=== PATIENT | female | born 2000 | race Two or more races ===

== ENCOUNTER → 2019-10-18 | Outpatient (REF) | payer OTHER ==
[~2019-10-18] MED LIST: KETO10TAB PO
== END ==
LOC: M SFHCLERA 11:51
PROVIDERS: ATTEND Nurse Practitioner Family
DX: J02.9 Acute pharyngitis, unspecified (principal)

== ENCOUNTER 2019-10-19 19:36 | Emergency (ER) | payer OTHER ==
[~2019-10-19] VITALS: Ht 157.5 cm; Wt 54.5 kg
[2019-10-19 19:36] VITALS: BP 123/76
[2019-10-19] MEDS ORDERED: KETOROLAC 60 MG/2 ML VIAL (J1885) IM ONE (20:15)
[2019-10-19] MEDS ORDERED: KETO10TAB PO (20:35)
== END 2019-10-19 20:43 | disposition home or self-care (01) ==
LOC: M ED 19:36
DX: J03.90 Acute tonsillitis, unspecified (principal)
CPT/HCPCS: 96372; 99282; J1885

== ENCOUNTER 2019-10-22 13:40 | Emergency (ER) | payer OTHER ==
[~2019-10-22] VITALS: Ht 157.5 cm; Wt 59.7 kg
[2019-10-22 13:41] VITALS: BP 100/64
[2019-10-22] MEDS ORDERED: PRED20TA PO ×2 (14:06→14:21)
[2019-10-22] MEDS ORDERED: AUGM875T28 PO ×2 (14:06→14:21)
== END 2019-10-22 14:16 | disposition home or self-care (01) ==
LOC: M ED 13:40
DX: J36 Peritonsillar abscess (principal); H92.03 Otalgia, bilateral

== ENCOUNTER 2019-11-03 18:49 | Emergency (ER) | payer OTHER ==
[~2019-11-03] VITALS: Ht 157.5 cm; Wt 58.7 kg
[~2019-11-03 18:49] MED LIST changes: +AUGM875T28 PO; +PRED20TA PO
[2019-11-03] MEDS ORDERED: ISOVUE-370 76% 100ML VIAL As Ordered ONE (19:16)
[2019-11-03 19:37] LABS: BASO % 0.2 % (0.0-1.0); EOS % 0.2 % (0.0-3.0); HEMATOCRIT 43.4 % (36.0-47.0); HEMOGLOBIN 14.6 g/dl (12.0-15.5); LYMPH # 2.3 10^3/uL (1.5-5.0); LYMPH % 25.8 % (24.0-44.0); MEAN CORPUSCULAR HEMOGLOBIN 32.6 pg (27.0-33.0); MEAN CORPUSCULAR HGB CONC 33.6 g/dl (32.0-36.5); MEAN CORPUSCULAR VOLUME 96.9 fl (80.0-96.0); MONO # 0.7 10^3/uL (0.0-0.8); NEUTROPHILS # 5.9 10^3/uL (1.5-8.5); NEUTROPHILS % 65.6 % (36.0-66.0); PLATELET COUNT, AUTOMATED 246 10^3/uL (150-450); RED BLOOD COUNT 4.48 10^6/uL (4.00-5.40)
[2019-11-03 19:55] LABS: ERYTHROCYTE SEDIMENTATION RATE 5 mm/hr (0-20)
--- NOTE | 2019-11-03 19:59 | REPVR ---
PROCEDURE INFORMATION: Exam: CT Neck With Contrast Exam date and time: 11/03/2019 7:47 PM Age: 19 years old Clinical indication: Mass, lump, or swelling in neck; Additional info: Persistent swelling left tonsil p tx/ ? abscess TECHNIQUE: Imaging protocol: Computed tomography images of the neck with intravenous contrast. Radiation optimization: All CT scans at this facility use at least one of these dose optimization techniques: automated exposure control; mA and/or kV adjustment per patient size (includes targeted exams where dose is matched to clinical indication); or iterative reconstruction. Contrast material: ISOVUE 370; Contrast volume: 75 ml; Contrast route: IV; COMPARISON: No relevant prior studies available. FINDINGS: Sinuses: No fluid collections. Nasopharynx: Unremarkable. Oropharynx: Mild left palatine tonsillar enlargement with heterogeneous enhancement. Hypopharynx: Unremarkable. Larynx: Unremarkable. Normal epiglottis. Retropharyngeal space: Unremarkable. Submandibular/Parotid glands: Normal. Glands are normal in size. Thyroid: Normal. No enlarged or calcified nodules. Lymph nodes: Mild left cervical adenopathy, likely reactive. Trachea: Visualized trachea is unremarkable. Lungs: Unremarkable as visualized. Bones/joints: Unremarkable. No acute fracture. Soft tissues: Unremarkable. No significant soft tissue swelling. IMPRESSION: 1. Mild left palatine tonsillar enlargement with heterogeneous enhancement. No fluid collections/abscess. 2. Mild left cervical adenopathy, likely reactive. Electronically signed by: Edgar Suarez On 11/03/2019 19:59:31 PM
[2019-11-03] MEDS ORDERED: CLEO300C2 PO (20:12)
[2019-11-03 20:17] VITALS: BP 122/77
== END 2019-11-03 20:22 | disposition home or self-care (01) ==
LOC: M ED 18:49
DX: J03.90 Acute tonsillitis, unspecified (principal); R59.0 Localized enlarged lymph nodes; H92.02 Otalgia, left ear; R42 Dizziness and giddiness
CPT/HCPCS: 70491; 80047; 83605; 84702; 85025; 85652; 86140; 87040; 99283; Q9967

== ENCOUNTER 2020-01-05 10:44 | Emergency (ER) | payer OTHER ==
[~2020-01-05] VITALS: Ht 160 cm; Wt 59.1 kg
[~2020-01-05 10:44] MED LIST changes: +CLEO300C2 PO
[2020-01-05] MEDS ORDERED: PREN29TA4 PO (10:52)
[2020-01-05 11:23] LABS: HEMATOCRIT 36.1 % (36.0-47.0); HEMOGLOBIN 12.2 g/dl (12.0-15.5); MEAN CORPUSCULAR HEMOGLOBIN 32.1 pg (27.0-33.0); MEAN CORPUSCULAR HGB CONC 33.8 g/dl (32.0-36.5); PLATELET COUNT, AUTOMATED 211 10^3/uL (150-450); WHITE BLOOD COUNT 5.3 10^3/uL (4.0-10.0)
--- NOTE | 2020-01-05 12:14 | REP ---
Clinical: Vaginal bleeding for dating and viability. Technique: Transabdominal first trimester obstetrical ultrasound with color Doppler evaluation. Findings: Early live intrauterine noted. Gestational sac with yolk sac and pole identified. CRL of 36 mm corresponds to 10 weeks 3 days gestational age with estimated date of delivery 07/30/2020. heart rate equals 167 bpm. No gross abnormalities are identified. Maternal ovaries are normal in appearance and vascularity. Impression: Single live early intrauterine at 10 weeks 3 days gestational age. Complete anatomical assessment should be performed at 19-20 weeks. Electronically Signed by Eber Colón MD 01/05/2020 12:06 P
[2020-01-05 12:25] LABS: APPEARANCE, URINE CLEAR (CLEAR); BACTERIA, URINE AUTO NEGATIVE (NEGATIVE); BILIRUBIN, URINE AUTO NEGATIVE (NEGATIVE); BLOOD, URINE BLOOD 2+ (NEGATIVE); COLOR, URINE STRAW (YELLOW); GLUCOSE, URINE (UA) AUTO NEGATIVE (NEGATIVE); KETONE, URINE AUTO NEGATIVE (NEGATIVE); LEUKOCYTE ESTERASE, URINE AUTO NEGATIVE (NEGATIVE); MUCUS, URINE SMALL (NEGATIVE); NITRITE, URINE AUTO NEGATIVE (NEGATIVE); PROTEIN, URINE AUTO NEGATIVE (NEGATIVE); RBC, URINE AUTO 9 /HPF (0-3); SPECIFIC GRAVITY URINE AUTO 1.009 (1.002-1.035); SQUAMOUS EPITHELIAL CELL UR AU 1 /HPF (0-6); UROBILINOGEN, URINE AUTO 0.2 mg/dL (0.0-2.0); WBC, URINE AUTO 0 /HPF (0-3)
[2020-01-05 12:46] VITALS: BP 124/76
[2020-01-05 13:47] LABS: CHLAMYDIA DNA AMPLIFICATION NEGATIVE (NEGATIVE); GC DNA AMPLIFICATION NEGATIVE (NEGATIVE)
== END 2020-01-05 12:48 | disposition home or self-care (01) ==
LOC: M ED 10:44
DX: O20.0 Threatened abortion (principal); Z79.899 Other long term (current) drug therapy

== ENCOUNTER 2020-01-23 10:47 | Emergency (ER) | payer OTHER ==
[~2020-01-23] VITALS: Ht 160 cm; Wt 59.3 kg
[~2020-01-23 10:47] MED LIST changes: +PREN29TA4 PO
[2020-01-23 11:12] LABS: BASO % 0.2 % (0.0-1.0); EOS % 0.4 % (0.0-3.0); HEMATOCRIT 36.5 % (36.0-47.0); HEMOGLOBIN 12.5 g/dl (12.0-15.5); LYMPH # 1.6 10^3/uL (1.5-5.0); MEAN CORPUSCULAR HEMOGLOBIN 32.5 pg (27.0-33.0); MEAN CORPUSCULAR HGB CONC 34.2 g/dl (32.0-36.5); MEAN CORPUSCULAR VOLUME 94.8 fl (80.0-96.0); MONO # 0.4 10^3/uL (0.0-0.8); MONO % 8.7 % (0.0-5.0); NEUTROPHILS # 2.8 10^3/uL (1.5-8.5); NEUTROPHILS % 57.5 % (36.0-66.0); PLATELET COUNT, AUTOMATED 223 10^3/uL (150-450); RED BLOOD COUNT 3.85 10^6/uL (4.00-5.40); WHITE BLOOD COUNT 4.8 10^3/uL (4.0-10.0)
[2020-01-23 11:45] LABS: BLOOD UREA NITROGEN 7 MG/DL (7-18); CALCIUM LEVEL 8.9 MG/DL (8.5-10.1); CARBON DIOXIDE LEVEL 25 MEQ/L (21-32); CHLORIDE LEVEL 105 MEQ/L (98-107); CREATININE FOR GFR 0.65 MG/DL (0.55-1.30); GLOMERULAR FILTRATION RATE > 60.0 (>60); GLUCOSE, FASTING 96 MG/DL (70-100); POTASSIUM SERUM 3.5 MEQ/L (3.5-5.1); SODIUM LEVEL 138 MEQ/L (136-145)
[2020-01-23 14:37] VITALS: BP 108/66
--- NOTE | 2020-01-23 16:08 | REP ---
REASON: Pelvic cramping. Transvesical and transvaginal imaging was obtained. Within the uterus, there is an anechoic structure with increased echoes surrounding it consistent with a decidual reaction. Within the gestational sac, there is echogenic material consistent with a pole, the mean crown-rump length measurement of which is consistent with a 45-ojtm-0-day gestational age. Based on that, the estimate date of delivery is 07/29/2020. Doppler interrogation of the heart shows the heart rate of 146 beats per minute. The developing placenta is in a fundal location. Seen adjacent to the developing chorion, there is a small area of decreased somewhat mixed echoes which measures 3 x 6 x 1 cm. IMPRESSION: Single living intrauterine gestation as described above. There is evidence of a subchorionic hemorrhage as described above. Followup is recommended. Electronically Signed by Cornelio Bonilla DO 01/23/2020 04:46 P
== END 2020-01-23 14:42 | disposition home or self-care (01) ==
LOC: M ED 10:47
DX: O20.9 Hemorrhage in early pregnancy, unspecified (principal); Z3A.13 13 weeks gestation of pregnancy

== ENCOUNTER 2020-04-29 11:01 | Outpatient (CLI) | payer OTHER ==
[~2020-04-29] VITALS: Ht 157.5 cm; Wt 70.6 kg
[2020-04-29 11:16] VITALS: BP 114/69
[2020-04-29 12:33] VITALS: BP 129/72
[2020-04-29 13:27] LABS: HEMATOCRIT 31.5 % (36.0-47.0); MEAN CORPUSCULAR HEMOGLOBIN 28.2 pg (27.0-33.0); MEAN CORPUSCULAR HGB CONC 31.7 g/dl (32.0-36.5); MEAN CORPUSCULAR VOLUME 88.7 fl (80.0-96.0); PLATELET COUNT, AUTOMATED 217 10^3/uL (150-450); RED BLOOD COUNT 3.55 10^6/uL (4.00-5.40); WHITE BLOOD COUNT 6.8 10^3/uL (4.0-10.0)
[2020-04-29 14:20] VITALS: BP 112/73
== END 2020-04-29 14:30 | disposition home or self-care (01) ==
LOC: M LDO 11:01
PROVIDERS: ATTEND Specialist
DX: O26.892 Other specified pregnancy related conditions, second trimester (principal); R42 Dizziness and giddiness; Z3A.26 26 weeks gestation of pregnancy
CPT/HCPCS: 36415; 85027; G0378; G0463

== ENCOUNTER → 2020-04-30 | Outpatient (CLI) | payer OTHER ==
--- NOTE | 2020-04-29 14:32 | IPNPDOC ---
Obstetrical Progress Note Date of Service Apr 29, 2020 Subjective 19 yo G1 at 26 3/7 weeks presents with c/o dizziness today. 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 No pain. No loss of fluid. Good movement.She has had leg cramps, but none today. She sees Dr. Cuevas at [facility] for care. Assessment Variability: Moderate Accelerations: Positive Decelerations: None Heart Rate Tracing: Category I Tocometer Contractions: No Assessment and Plan Age: 19 : 1 EGA at Admission: 26 (3/7) Weeks & Days 3/7 Additional Comments Plan discharge home Keep appointment for LE doppler tomorrow rest, encourage po fluids CHUCK MILLER MD Apr 29, 2020 14:32
--- NOTE | 2020-04-30 08:13 | REP ---
INDICATION: PAIN IN RT LEG COMPARISON: None. TECHNIQUE: Singh scale and color Doppler evaluation using linear high frequency transducer. FINDINGS: Ultrasound examination of the right lower extremity deep venous structures from the common femoral vein to the popliteal vein demonstrates normal compressibility flow and wave patterns in response to respiration and augmentation. There is no evidence for deep venous thrombosis. IMPRESSION: No evidence for deep venous thrombosis. <Electronically signed by Eber Colón > 04/30/20 [id number]
[2020-04-30 09:26] LABS: BASO % 0.2 % (0.0-1.0); EOS % 0.2 % (0.0-3.0); HEMATOCRIT 32.7 % (36.0-47.0); HEMOGLOBIN 10.3 g/dl (12.0-15.5); LYMPH # 1.5 10^3/uL (1.5-5.0); LYMPH % 24.3 % (24.0-44.0); MEAN CORPUSCULAR HEMOGLOBIN 28.2 pg (27.0-33.0); MEAN CORPUSCULAR HGB CONC 31.5 g/dl (32.0-36.5); MEAN CORPUSCULAR VOLUME 89.6 fl (80.0-96.0); MONO # 0.5 10^3/uL (0.0-0.8); MONO % 7.9 % (0.0-5.0); NEUTROPHILS # 4.1 10^3/uL (1.5-8.5); NEUTROPHILS % 66.9 % (36.0-66.0); PLATELET COUNT, AUTOMATED 237 10^3/uL (150-450); RED BLOOD COUNT 3.65 10^6/uL (4.00-5.40); WHITE BLOOD COUNT 6.1 10^3/uL (4.0-10.0)
== END ==
LOC: M RAD 06:37
PROVIDERS: ATTEND Obstetrics & Gynecology
DX: M79.604 Pain in right leg (principal)

== ENCOUNTER 2020-07-10 21:30 | Outpatient (CLI) | payer OTHER ==
[~2020-07-10] VITALS: Ht 157.5 cm; Wt 76.2 kg
[2020-07-10 21:47] VITALS: BP 110/63
--- NOTE | 2020-07-10 22:04 | IPNPDOC ---
Obstetrical Progress Note Date of Service Jul 10, 2020 Subjective 19 yo at 36 5/7 weeks gestation presents to triage after slipping on the ice and falling on her left side. No pain currently. Good movement. Pt of Dr. Cuevas at [facility]. Objective Vital Signs Date Time Temp Pulse Resp B/P (MAP) Pulse Ox O2 Delivery O2 Flow Rate FiO2 07/10/20 21:46 97.1 Assessment Variability: Moderate Accelerations: Positive Decelerations: None Heart Rate Tracing: Category I Tocometer Contractions: No Assessment and Plan Status: Reassuring Additional Comments 19 yo G1 at 36 5/7 weeks s/p fall reassuring testing discharge home fu Dr. Cuevas as scheduled CHUCK MILLER MD Jul 10, 2020 22:04
[2020-07-10 22:20] VITALS: BP 119/68
== END 2020-07-10 22:17 | disposition home or self-care (01) ==
LOC: M LDO 21:30
PROVIDERS: ATTEND Obstetrics & Gynecology
DX: O9A.213 Injury, poisoning and certain other consequences of external causes complicating pregnancy, third trimester (principal); W00.0XXA Fall on same level due to ice and snow, initial encounter; Y92.9 Unspecified place or not applicable; Y93.9 Activity, unspecified; Y99.9 Unspecified external cause status; Z3A.36 36 weeks gestation of pregnancy
CPT/HCPCS: 59025; G0378; G0463

== ENCOUNTER → 2020-09-20 | Outpatient (CLI) | payer OTHER ==
[2020-09-20 11:47] LABS: BASO % 0.4 % (0.0-1.0); EOS % 0.4 % (0.0-3.0); HEMOGLOBIN 14.1 g/dl (12.0-15.5); LYMPH # 2.3 10^3/uL (1.5-5.0); LYMPH % 49.8 % (24.0-44.0); MEAN CORPUSCULAR HEMOGLOBIN 27.5 pg (27.0-33.0); MEAN CORPUSCULAR VOLUME 85.9 fl (80.0-96.0); MONO # 0.4 10^3/uL (0.0-0.8); MONO % 8.2 % (2.0-8.0); NEUTROPHILS # 1.9 10^3/uL (1.5-8.5); PLATELET COUNT, AUTOMATED 203 10^3/uL (150-450); RED BLOOD COUNT 5.12 10^6/uL (4.00-5.40); WHITE BLOOD COUNT 4.6 10^3/uL (4.0-10.0)
[2020-09-20 12:06] LABS: HEMOGLOBIN A1c 4.9 %
[2020-09-20 12:24] LABS: ALBUMIN 3.7 GM/DL (3.2-5.2); ALT/SGPT 26 U/L (12-78); BILIRUBIN,TOTAL 0.5 MG/DL (0.2-1.0); BLOOD UREA NITROGEN 10 MG/DL (7-18); CARBON DIOXIDE LEVEL 27 MEQ/L (21-32); CHLORIDE LEVEL 108 MEQ/L (98-107); CHOLESTEROL LEVEL 179 MG/DL (<200); CHOLESTEROL RISK RATIO 3.254 (<5); CREATININE FOR GFR 0.88 MG/DL (0.55-1.30); FERRITIN 5 NG/ML (8-252); GLOMERULAR FILTRATION RATE > 60.0 (>60); GLUCOSE, FASTING 88 MG/DL (70-100); HDL CHOLESTEROL 55 MG/DL (>40); IRON (FE) 46 UG/DL (50-170); LDL CHOLESTEROL 98 MG/DL (<100); NON-HDL-C 124 MG/DL; PERCENT SATURATION 12.2 % (13.2-45.0); POTASSIUM SERUM 4.2 MEQ/L (3.5-5.1); SODIUM LEVEL 140 MEQ/L (136-145); TOTAL IRON BINDING CAPACITY 376 UG/DL (250-450); TOTAL PROTEIN 7.5 GM/DL (6.4-8.2); TRIGLYCERIDES LEVEL 128 MG/DL (<150)
== END ==
LOC: M LAB 11:15
PROVIDERS: ATTEND Nurse Practitioner Family
DX: Z00.01 Encounter for general adult medical examination with abnormal findings (principal)